=== PATIENT | male | born 1970 | race Caucasian/White ===

== ENCOUNTER 2017-06-12 00:39 | Emergency (ER) | payer BC, OTHER ==
[~2017-06-12] VITALS: Ht 177.8 cm; Wt 85.0 kg
[2017-06-12 00:51] VITALS: BP 127/85; PULSE 89; RESP 16; TEMP 98; O2SAT 95
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
== END 2017-06-12 01:40 ==
LOC: NEPD 00:39
DX: S00.03XA Contusion of scalp, initial encounter (principal); W22.8XXA Striking against or struck by other objects, initial encounter; Z72.0 Tobacco use
CPT/HCPCS: 70450; 99283